=== PATIENT | female | born 1965 | race Caucasian/White ===

== ENCOUNTER 2018-03-12 00:54 | Emergency (ER) | payer MEDICAID ==
[~2018-03-12] VITALS: Ht 165.1 cm; Wt 60.0 kg
[~2018-03-12 00:54] MED LIST: ALBU6.7H INH; GABA300C PO
[2018-03-12 01:04] VITALS: BP 104/60
[2018-03-12 01:29] LABS: URINE HCG NEGATIVE (NEG)
[2018-03-12] MEDS ORDERED: BISA-155 PO (01:54)
[2018-03-12] MEDS ORDERED: POLY17PO10 PO (01:54)
[2018-03-12 02:27] LABS: CLARITY,URINE CLEAR (Clear); COLOR,URINE AMBER (Yellow); GLUCOSE, URINE NEGATIVE (Neg); KETONES,URINE NEGATIVE (Neg); LEUKOCYTE ESTERASE ,URINE NEGATIVE (Neg); NITRITES, URINE NEGATIVE (Neg); OCCULT BLOOD,URINE NEGATIVE (Neg); PROTEIN,URINE TRACE mg/dl (Neg)
[2018-03-12 02:28] LABS: UA COLLECTION TYPE CLN CATCH MIDSTREAM
[2018-03-12 02:35] LABS: MUCUS STRANDS MANY /LPF (Neg)
[2018-03-12 02:36] LABS: BACTERIA,URINE NONE SEEN /HPF (Neg); SQUAMOUS EPITHELIAL CELL,UR FEW /LPF (FEW); WBC,URINE 0-4 /HPF (0-4)
== END 2018-03-12 02:47 | disposition home or self-care (01) ==
LOC: ER 00:55
DX: R10.84 Generalized abdominal pain (principal); K59.00 Constipation, unspecified; R11.0 Nausea; Z79.899 Other long term (current) drug therapy; Z56.0 Unemployment, unspecified; Z59.0 Homelessness
CPT/HCPCS: 74018; 81001; 81025; 99285

== ENCOUNTER 2019-08-13 05:51 | Emergency (ER) | payer MEDICAID ==
[~2019-08-13] VITALS: Ht 165.1 cm; Wt 59.0 kg
[~2019-08-13 05:51] MED LIST changes: -ALBU6.7H INH; +ALBU6.7H9 INH; +BISA-155 PO
[2019-08-13 05:52] VITALS: BP 116/78
[2019-08-13] MEDS ORDERED: ibuprofen tablet 400 MG TABLET PO ONE (06:30)
== END 2019-08-13 07:37 | disposition home or self-care (01) ==
LOC: ER 05:51
DX: M79.645 Pain in left finger(s) (principal); Z59.0 Homelessness; Z56.0 Unemployment, unspecified; Z79.899 Other long term (current) drug therapy
CPT/HCPCS: 73140; 99283